=== PATIENT | male | born 1930 | race African-American/Black ===

== ENCOUNTER 2017-02-02 08:18 | Emergency (ER) | payer OTHER ==
[~2017-02-02] VITALS: Ht 182.9 cm; Wt 85.0 kg
[~2017-02-02 08:18] MED LIST: ALBU05 IH; CHLO25CA10 PO; EPINEPHRINE 0.1MG/ML (1:10,000) 10ML SYR ONE; FLUT1DIS IH; MAGNESIUM SULFATE 4G IN WATER 100ML PREMIX IV ONE; PHEN100C4 PO; SODIUM BICARBONATE 7.5% 0.9 MEQ/ML 50ML SYR IV ONE
[2017-02-02 08:20] VITALS: BP 0/0
== END 2017-02-02 08:25 | disposition expired ==
LOC: ER 08:25
DX: I46.9 Cardiac arrest, cause unspecified (principal); I50.9 Heart failure, unspecified; Z85.46 Personal history of malignant neoplasm of prostate; Z88.0 Allergy status to penicillin
CPT/HCPCS: 92950; 99285; J0171; J3475; J3490